=== PATIENT | female | born 2000 | race African-American/Black ===

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

== ENCOUNTER 2018-02-08 07:35 | Day surgery (SDC) | payer OTHER ==
[2018-02-05 13:11] VITALS: BMI 21.4
[2018-02-08] MEDS ORDERED: EPINEPHrine 1:1,000 1 MG/1 ML - 30ML VIAL (INJECTION) ONE (09:05)
[2018-02-08] MEDS ORDERED: BUPIVACAINE HCL 0.25% 125 MG/50 ML VIAL ONE (09:07)
[2018-02-08] MEDS ORDERED: MIDAZOLAM HCL 2 MG/2 ML SINGLE DOSE VIAL ONE (09:49)
[2018-02-08] MEDS ORDERED: ceFAZolin SODIUM 1 GM VIAL ONE (10:01)
[2018-02-08] MEDS ORDERED: ONDANSETRON 4 MG/2 ML VIAL ONE ×2 (10:09→11:15)
[2018-02-08] MEDS ORDERED: DEXAMETHASONE SOD PHOSPHATE 4 MG/1 ML VIAL ONE (10:09)
[2018-02-08] MEDS ORDERED: BUPIVACAINE HCL/PF 0.25% (2.5MG/ML) 10 ML VIAL IM ONE (10:28)
[2018-02-08] MEDS ORDERED: oxyCODONE HCL 5 MG TABLET PO PRN (10:32)
[2018-02-08] MEDS ORDERED: ONDANSETRON 4 MG/2 ML VIAL IVPUSH PRN (10:32)
[2018-02-08] MEDS ORDERED: KETOROLAC TROMETHAMINE 30 MG/1 ML VIAL ONE (10:35)
[2018-02-08] MEDS ORDERED: LIDOCAINE HCL/PF 2% SDV 5ML VIAL ONE (10:43)
[2018-02-08] MEDS ORDERED: LACTATED RINGERS SOLUTION 1,000 ML IV SCH (10:45)
--- NOTE | 2018-02-08 11:19 | OP ---
Operative Note - Note: Operative Date: 02/08/18 Pre-Operative Diagnosis: left knee medial meniscal tear Operation: left knee partial menisectomy Post-Operative Diagnosis: Same as Pre-op Surgeon: Reinaldo Esqueda Anesthesiologist/HOME ENERGY INSPECTOR: Celio Tabares Anesthesia: General Operative Report Dictated: Yes
--- NOTE | 2018-02-08 11:36 | OP ---
DATE OF OPERATION: 02/08/2018 PREOPERATIVE DIAGNOSIS: Left knee meniscal tear. POSTOPERATIVE DIAGNOSIS: Left knee meniscal tear. PROCEDURE: Left knee arthroscopy with partial medial meniscectomy. SURGEON: Reinaldo Esqueda MD ANESTHESIA: General. POSTOPERATIVE CONDITION: Stable. COMPLICATIONS: None. INDICATIONS: This is a 17-year-old female who had been playing basketball and felt medial pain. She had some knee swelling as well. MRI demonstrated medial meniscal tear. Treatment options including nonoperative versus operative measures were discussed. Operative risks were reviewed in detail including bleeding, infection, neurovascular injury, any further surgery, postoperative pain and stiffness, progression of osteoarthritis. We discussed medical risks such as heart attack, stroke, DVT, PE, and . We discussed the possibility of meniscal repair which would be optimal, however, given the chronicity of the tear, repair would not likely be able to be performed. I addressed all the patient's questions and concerns of the surgery itself. Reviewed medical risks such as heart attack, stroke, DVT, PE, and . Patient voiced understanding and elected to proceed. DESCRIPTION OF PROCEDURE: The patient was brought to the operating room where anesthesia was administered. The left lower extremity was examined demonstrating an increased Emily with firm endpoint. The knee had no effusion. There was good range of motion. The collaterals and PCL were stable. At this point, the patient was prepped and draped in the usual sterile fashion. A preoperative dose of antibiotics was given, and the usual timeout procedure was performed. Utilizing the previous incision, the portal sites were injected subcutaneously with 0.25% Marcaine. An 11-blade was now used to establish the lateral portal. The arthroscope was passed into the knee. The patellofemoral joint was examined demonstrating some partial thickness cartilage wear. The arthroscope was passed to the notch. Here, the ACL was visualized. However, it was noted to be quite vertical. The PCL seemed to be unremarkable. The arthroscope was passed medially. Here, a nondisplaced bucket handle type tear was identified. It did appear chronic, and though it was not flipped over, it was dysplastic and felt to be irreparable. The medial portal was now established under spinal needle localization. The meniscal fragment was debrided, any loose tissue was debrided down to a stable base. There was some mild partial thickness cartilage loss on the medial femoral condyle. The arthroscope was now passed back into the notch. A probe was inserted, and the ACL graft was seen to have tension on it and appeared to be scarred in, possibly just into the notch or to the PCL. The arthroscope was now passed into the lateral compartment. Here, the cartilaginous surfaces were unremarkable. The nerve roots appeared unremarkable. At this point, the excess fluid was withdrawn from the knee. The portals were sutured using 3-0 nylon. Sterile dressings were placed. The patient was extubated and transferred to recovery room in stable condition. Giorgio MOSES/[id number]
[2018-02-08] MEDS ORDERED: oxyCODONE HCL 5 MG TABLET ONE (11:46)
[2018-02-08 13:23] VITALS: BP 113/67; PULSE 66; TEMP 98.5
== END 2018-02-08 13:25 | disposition home or self-care (01) ==
LOC: FASU 07:35
PROVIDERS: ATTEND Orthopaedic Surgery Sports Medicine
PROC: 0SBD4ZZ Excision of Left Knee Joint, Percutaneous Endoscopic Approach (ICD-10-PCS; principal; 2018-02-08 10:13)
DX: S83.242A Other tear of medial meniscus, current injury, left knee, initial encounter (principal); X58.XXXA Exposure to other specified factors, initial encounter; Y93.9 Activity, unspecified; Y92.9 Unspecified place or not applicable
CPT/HCPCS: 36415; 84703; 94760